=== PATIENT | female | born 2000 | race Caucasian/White ===

== ENCOUNTER 2024-07-16 13:21 | Emergency (ER) | payer BC, SELFPAY ==
[2024-07-16 13:22] VITALS: BP 109/64
[2024-07-16 14:23] LABS: % Basophils 0.6 % (0-2); % Eosinophils 2.5 % (0-6); % Immature Granulocytes 0.2 % (0-0.5); % Lymphocytes 27.5 % (20.5-51.1); % Monocytes 4.5 % (1.7-9.3); % Neutrophils 64.7 % (42.2-75.2); Absolute Basophils 0.1 10^3/uL (0-0.2); Absolute Eosinophils 0.3 10^3/uL (0-0.7); Absolute Lymphocytes 2.9 10^3/uL (1.2-3.4); Absolute Monocytes 0.5 10^3/uL (0.1-0.6); Absolute Neutrophils 6.7 10^3/uL (1.4-6.5); Hematocrit 38.4 % (37.0-47.0); Hemoglobin 12.3 g/dL (12.0-16.0); Mean Corpuscular Hgb 28.3 pg (27.0-31.0); Mean Corpuscular Volume 88.3 fL (81.0-99.0); Mean Platelet Volume 9.9 fL (7.4-10.4); Nucleated Red Blood Cells % 0 %; Platelet Count 272 10^3/uL (130-400); Red Blood Cell Count 4.35 10^6/uL (4.20-5.40); Red Cell Dist. Width 13.3 % (11.5-14.5); White Blood Cell Count 10.4 10^3/uL (4.8-10.8)
[2024-07-16 14:39] LABS: Urine Albumin 4+ (Neg - Trace); Urine Bilirubin Negative (Negative); Urine Character Cloudy (Clear); Urine Color Red; Urine Glucose Negative (Negative); Urine Ketone 1+ (Negative); Urine Leukocyte 3+ (Negative); Urine Nitrite Positive (Negative); Urine Occult Blood 4+ (Negative); Urine Specific Gravity 1.015 (<1.030); Urine Urobilinogen Negative (Neg - 1+)
[2024-07-16 14:40] LABS: ALT (SGPT) 14 U/L (0-35); AST (SGOT) 20 U/L (14-36); Albumin 4.3 g/dl (3.5-5.0); Alkaline Phosphatase 58 U/L (38-126); Blood Urea Nitrogen 15 mg/dl (7-17); Calcium 9.9 mg/dl (8.4-10.2); Carbon Dioxide 27 mmol/L (22-30); Chloride 104 mmol/L (98-107); Glucose 156 mg/dl (70-99); Potassium 4.6 mmol/L (3.5-5.1); Sodium 138 mmol/L (135-145); Total Bilirubin 0.7 mg/dl (0.2-1.3); Total Protein 6.9 g/dl (6.3-8.2); eGFR > 60.00
[2024-07-16 14:47] VITALS: BP 106/71; BP 109/69; BP 109/76; PULSE 68; PULSE 75; PULSE 78
[2024-07-16 14:55] LABS: Urine Bacteria Few (Negative); Urine Red Blood Cell 90-100 /HPF (0-2); Urine Squamous Cell 0-2 /LPF (Few); Urine White Cell 0-2 /HPF (0-5)
--- NOTE | 2024-07-16 15:06 | ED.GENMED ---
History of Present Illness
General
Chief Complaint: Fainting Sensation
Source: patient
Exam Limitations: none
Time Seen by Provider: 07/16/24 14:28
Nursing documentation reviewed up to this point in time: agreed with
History of Present Illness
History of Present Illness:
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 She has had some pain with urination today. She walked back to her desk and everything started
to go dark so she sat at her desk and put her head down she started to feel shaky and sweaty and her ears were ringing. Next thing she knows her coworkers were around her. She does not think she actually lost consciousness. She denies fever or
chills. Denies N/V.
Past History
Past History
ED Past Medical History: GERD
ED Past Surgical History: None
Social History
Tobacco: Smoker
Alcohol: Occasional
Personal: Single
Living: with family
Employment: Employed
Review of Systems
Review of Systems
Allergies reviewed?: Yes
All Other Systems: ROS reviewed and negative except as documented in HPI and ROS
Constitutional: Denies fever or chills
Respiratory: Denies trouble breathing
Cardiac: Denies chest pain
ABD/GI: Denies abdominal pain, nausea, vomiting or diarrhea
: Reports dysuria, bleeding and other (LMP 3 weeks ago); Denies frequency, flank pain, difficulty voiding or urgency
Musculoskeletal: Reports no symptoms
Skin: Reports no symptoms
Neurological: Reports no symptoms
Phy Exam
Physical Exam
Physical Exam:
GENERAL: No acute distress. A&Ox3.
CONSTITUTIONAL: Afebrile.
EYES: clear, conjunctivae normal
ENMT: moist mucus membranes, Pharynx nl
RESPIRATORY: Regular respirations, nonlabored, lungs clear.
CARDIOVASCULAR: Regular rate and rhythm, no murmurs, no rubs.
GI: Soft, nontender, normal BS
MUSCULOSKELETAL: Moves with ease. Well perfused.
SKIN: Warm, dry, pink
PSYCH: Normal mood and affect. Well kept, interactive and appropriate
NEUROLOGIC: Awake, alert and oriented. No focal neurological deficits
Course
Orders/Labs/Results
Orders:
Orders
07/16/24 13:26
ECG [Electrocardiogram (*1)] Urgent
Reason for Study: Syncope
EKG- Treatment ONCE
07/16/24 13:34
Complete Blood Count/With Diff Urgent
Comprehensive Metabolic Panel Urgent
07/16/24 13:47
UA [Urinalysis] Urgent
Date Specimen was Collected: 07/16/24
Time Specimen was Collected: 13:45
Urine Microscopic Urgent
Date Specimen was Collected: 07/16/24
Time Specimen was Collected: 13:45
07/16/24 14:28
Orthostatic VS- Treatment ONCE
07/16/24 15:17
Add On- LAB Urgent
Tests Added?: Urine culture
Abnormal Lab Results
07/16/24 07/16/24
13:34 13:47
MCHC 32.0 L g/dL
(33.0-37.0)
Absolute Neuts (auto) 6.7 H 10^3/uL
(1.4-6.5)
Glucose 156 H mg/dl
(70-99)
Urine Ketones 1+ A
(Negative)
Urine Occult Blood 4+ A
(Negative)
Urine Nitrite Positive A
(Negative)
Ur Leukocyte Esterase 3+ A
(Negative)
Urine RBC 90-100 A /HPF
(0-2)
Urine Bacteria Few A
(Negative)
Urine Albumin 4+ A
(Neg - Trace)
07/16/24 13:34
07/16/24 13:34
Vital Signs
Initial and Last Documented VS:
Initial Vital Signs
Temp Pulse Resp BP Pulse Ox
97.6 F 80 16 109/64 100
07/16/24 13:22 07/16/24 13:22 07/16/24 13:22 07/16/24 13:22 07/16/24 13:22
Last Documented Vital Signs
Temp Pulse Resp BP Pulse Ox
97.6 F 70 16 116/71 97
07/16/24 13:22 07/16/24 15:30 07/16/24 13:22 07/16/24 15:30 07/16/24 15:30
MDM/Problems Addressed
Differential Diagnosis Includes:
Vasovagal response, dehydration
MDM/Problems Addressed:
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 She has had some pain with urination today. She walked back to her desk and everything started
to go dark so she sat at her desk and put her head down she started to feel shaky and sweaty and her ears were ringing. Next thing she knows her coworkers were around her. She does not think she actually lost consciousness. She denies fever or
chills. Denies N/V.
Afebrile, NAD
Patient does admit that whenever she gets her blood drawn or 'things like that,' she does feel a little faint but never had near syncope like she did today
3:00 p.m.
CBC, CMP unremarkable
UA with 4+ occult blood, 90-100 RBCs, 3+ leukocytes, positive nitrites, no WBCs, few bacteria (unusual that no WBCs)
Patient has absolutely no abdominal or flank pain, no history of kidney stones.
Will treat for UTI pending cultures
Case discussed with Dr. Lenz who agrees with plan
Orthostatics negative
History and exam is most consistent with a vasovagal response.
UTI
*Critical Care Note
Total Time (30-74mins, 75-104mins- exclusive of procedures): Not Applicable
ED Attending Note
-
Portions of this chart may have been created with voice recognition software.� Occasional wrong word or��sound alike� substitutions may have occurred due to the inherent limitations of voice recognition software.
Discharge Plan
Departure
Patient Disposition: Home (Routine Discharge)
Date of Disposition: 07/16/24
Time of Disposition: 15:20
Patient with high blood pressure during this ER visit?: No
Condition: Good
Discharge Problem:
Vasovagal near syncope, UTI (urinary tract infection)
Instructions: Urinary tract infections in adults, Vasovagal Response (DC), Near Fainting (DC)
Prescriptions:
New
nitrofurantoin macrocrystal 100 mg capsule
100 mg PO BID 7 Days Qty: 14 0RF
Referrals:
Tari Tesfaye MD [Family Provider] - As needed
Activity Restrictions/Additional Instructions:
As we discussed, it looks as if you have a urinary tract infection. Drink plenty of water/fluid
I sent a prescription to your pharmacy for nitrofurantoin to take twice a day for 7 days
Interventions
Interventions:
*Risk Screen - Suicide Last Done: 07/16/24 13:22
*General Assessment Last Done: 07/16/24 13:22
*Neglect/Abuse Screening Last Done: 07/16/24 15:30
*ED- Fall Risk Assessment Last Done: 07/16/24 15:30
*ED COVID-19 Vaccine History Last Done: 07/16/24 15:30
*Nursing Disposition Last Done: 07/16/24 15:30
ED- Cardiac Assessment Last Done: 07/16/24 14:26
ED- Neurological Assessment Last Done: 07/16/24 14:26
Discharge Date and Time
Print Language: [id number]
[2024-07-16 15:30] VITALS: BP 116/71
== END 2024-07-16 15:35 | disposition home or self-care (01) ==
LOC: EMR 13:21
PROVIDERS: Emergency Medicine; EMERGENCY PHYSICIAN Emergency Medicine; FAMILY PHYSICIAN Family Medicine
DX: R55 Syncope and collapse (principal); N39.0 Urinary tract infection, site not specified; F17.200 Nicotine dependence, unspecified, uncomplicated
CPT/HCPCS: 99283; 80053; 81003; 81015; 85025; 87077; 87086; 87186; 93005

== ENCOUNTER → 2024-08-13 16:37 | Outpatient (REF) | payer BC, SELFPAY ==
[2024-08-13 17:49] LABS: HDL Cholesterol 79 mg/dl; LDL Cholesterol, Calculated 37 mg/dl; Total Cholesterol 125 mg/dl (50-199); Triglyceride 46 mg/dl (10-149); Very Low Density Lipoprotein 9 mg/dl (0-30)
== END ==
LOC: REG 16:37
PROVIDERS: ATTENDING PHYSICIAN Family Medicine
DX: Z13.220 Encounter for screening for lipoid disorders (principal)
CPT/HCPCS: 36415; 80061

== ENCOUNTER → 2024-12-11 17:04 | Outpatient (REF) | payer BC, SELFPAY | LOC: REG 17:04 | PROVIDERS: ATTENDING PHYSICIAN Physician Assistant; FAMILY PHYSICIAN Family Medicine | DX: N39.0 Urinary tract infection, site not specified (principal) | CPT/HCPCS: 87077; 87086; 87147 ==

== ENCOUNTER → 2024-12-17 12:56 | Outpatient (REF) | payer BC, SELFPAY ==
[2024-12-19 22:03] LABS: Bacterial Vaginosis by TMA Negative; Candida glabrata by TMA Negative; Candida species by TMA Positive; Trichomonas vaginalis by TMA Negative
== END ==
LOC: REG 12:56
PROVIDERS: ATTENDING PHYSICIAN Family Medicine
DX: R30.0 Dysuria (principal); N89.8 Other specified noninflammatory disorders of vagina
CPT/HCPCS: 81513; 87086; 87481; 87661